=== PATIENT | male | born 1980 | race Caucasian/White ===

== ENCOUNTER 2018-11-06 19:20 | Emergency (ER) | payer SELFPAY ==
[~2018-11-06] VITALS: Ht 175.3 cm; Wt 85.3 kg
[2018-11-06 19:27] VITALS: BP 99/74
--- NOTE | 2018-11-06 19:35 | NUR ---
PT AMBULATED TO CHAIR B
--- NOTE | 2018-11-06 20:24 | NUR ---
PATIENT LEFT WITHOUT BEING SEEN BY MERI MORENO. NO FURTHER CARE PROVIDED FOR PATIENT.
== END 2018-11-06 20:24 | disposition left against medical advice (07) ==
LOC: MED 19:20
DX: R11.0 Nausea (principal); R42 Dizziness and giddiness; Z53.21 Procedure and treatment not carried out due to patient leaving prior to being seen by health care provider